=== PATIENT | female | born 2000 | race Two or more races ===

== ENCOUNTER → 2023-08-18 | Emergency (ER) | payer BC ==
[~2023-08-18] VITALS: Ht 152.4 cm; Wt 56.7 kg
[~2023-08-18] MED LIST: CLEOCIN HCL300 MG PO; CLINDAMYCIN PHOSPHATE 150 MG/ML (300mg) IM STA; ESCITALOPRAM OX10 MG; MOMETASONE FURO15 G2 TOP; TRIPLE ANTIBI28.4 G3 TOP
== END | disposition home or self-care (01) ==
LOC: ER 17:19
DX: L01.1 Impetiginization of other dermatoses (principal)